=== PATIENT | male | born 1965 | race Caucasian/White ===

== ENCOUNTER 2025-05-30 14:55 | Outpatient (AMB) | payer OTHER, SELFPAY ==
--- NOTE | 2025-05-30 15:08 | A.PHYSOV_ITS ---
Vital Signs 05/30/25 15:14 Height 5 ft 9 in Weight 200 lb BMI 29.5 Intake Visit Reasons: MRI FUV-SCANNED Intake Note: Patient is a 60yr old male coming in today for MRI review. Supervisor Ditching Required: No Allergies bee venom protein (honey bee) Allergy (Unknown, Verified 05/30/25 15:10) Unknown celecoxib Allergy (Unknown, Verified 05/30/25 15:10) Unknown HPI Comments Details: Mr. Amin is a 60-year-old male seen in evaluation today for chronic pain. Today we are reviewing MRI of his lumbar spine. He reports pain level today a 5/10 into the lower lumbar area without radiculitis. Patient did complete physician directed home exercise plan. MRI of his lumbar spine does confirm degenerative changes throughout the lumbar spine without high-grade spinal canal stenosis. Foraminal stenosis most pronounced at L2-3 and L5-S1 bilaterally as well as the right at L3-4. Patient is also experiencing 6/10 neck and shoulder pain. He did undergo bilateral subacromial injection for both shoulders on 04/26/2005. Patient reports moderate relief of his symptoms. He is still experiencing neck pain with popping. I ordered x-rays of his cervical spine which does confirm degenerative changes particularly at C5-6. X-ray of both shoulders does confirm mild calcific tendinitis on the left. X-ray of the thoracic spine does confirm spurring more prominent on the right. [facility] Surgical History H/O vasectomy [place] teeth extracted (Unknown) History of hip surgery (Unknown) History of ankle surgery (Unknown) Social History Alcohol intake: current Alcohol intake frequency: 0-2 drinks per day Patient Tobacco Use Status: Never used Tobacco Review of Systems Narrative Review of systems consistent with low back pain, neck pain and bilateral shoulder pain. No incontinence, saddle anesthesia or urinary retention. Physical Exam Exam Exam: Cervical Spine: Examination of his cervical spine, there is no visible swelling or deformity. He is tender to bilateral upper trapezius. Full range of motion of the cervical spine in all planes. Special Tests: Axial Compression test: Negative Spurlings test: Negative Lhermitte's sign is Negative Upper Extremities: Full range of motion bilateral upper extremities. Positive Neer testing bilaterally. Neuro: Sensation: Intact to upper extremities bilateral to light touch Strength C5 (Elbow Flexion): 5/5 on the left and 5/5 on the right. C6 (Elbow Ext): 5/5 on the left and 5/5 on the right. C7 (Elbow Ext): 5/5 on the left and 5/5 on the right. C8 (Finger Flex): 5/5 on the left and 5/5 on the right. T1 (Finger Abd/Add): 5/5 on the left and 5/5 on the right. DTR: C5 (Biceps): Left 2 Right 2 C6 (Brachioradialis): Left 2 Right 2 C7 (Triceps): Left 1 Right 1 Infante sign: Negative No pathologic clonus. No involuntary movement. Lumbar Spine: Examination of his lumbar spine, he is tender to lower lumbar facets as well as midthoracic paraspinal musculature. He has full range motion of his thoracic spine. Chest rises and falls symmetrically. No scapular winging. He is tender to lower lumbar facets. Full range of motion of his lumbar spine. He denies any pain with facet loading. Special Tests: Lhermittes sign was negative Heel Toe walk is normal Left straight leg raise: Negative Right straight leg raise: Negative Special tests Isa test is negative Ganslen's test is negative SI Joint compression test negative Dez test negative Piriformis stretch is negative Lower Extremities: Full range of motion bilateral lower extremities. No calf pain or edema. Neuro: Sensation: Intact to lower extremities bilaterally Strength L2 (Psoas): 5/5 on the left and 5/5 on the right. L3 (Quads): 5/5 on the left and 5/5 on the right. L4 (Ant tibialis): 5/5 on the left and 5/5 on the right. L5 (EHL) 5/5 on the left and 5/5 on the right. S1 (Gastroc): 5/5 on the left and 5/5 on the right. DTR L4: (Patellar) Left 2 Right 2 S1: (Achilles) Left 2 Right 2 Babinski Downgoing No pathologic clonus. No involuntary movement. Vital Signs: BMI result Body Mass Index 29.5 Assessment & Plan Assessment & Plan (1) Cervical radiculopathy: Code(s): M54.12 - Radiculopathy, cervical region Category: Medical (2) Impingement syndrome of right shoulder: Code(s): M75.41 - Impingement syndrome of right shoulder Category: Medical (3) Lumbar radiculopathy: Code(s): M54.16 - Radiculopathy, lumbar region Category: Medical (4) Impingement of right shoulder: Code(s): M25.811 - Other specified joint disorders, right shoulder Category: Medical (5) Thoracic radiculopathy: Code(s): M54.14 - Radiculopathy, thoracic region Category: Medical Plan Mr. Amin is a 60-year-old male seen in evaluation today for complaints including neck and low back pain as well as bilateral shoulder pain. He did receive mild relief from bilateral subacromial injection. I recommend a course of physical therapy focusing on his neck, shoulders and thoracic spine. Recommend follow-up post physical therapy. He will continue his medications as prescribed. MRI of his lumbar spine does confirm mild to moderate degenerative disc disease. Patient will monitor his symptoms. He may benefit from facet injection. We may also consider MRI on return from physical therapy. We discussed the benefits of proper nutrition and exercise to maintain a healthy body weight to improve longevity and function. We also discussed the benefits of proper lifting techniques, core strengthening and proper posture. Thank you for allowing me to participate in the care of your patient. Orders: Orders PT Evaluation and Treatment Today M54.12 - Radiculopathy, cervical region, M75.41 - Impingement syndrome of right shoulder Coding Level of Care Code Tele Est Pt Level 3 (42062) Diagnoses Cervical radiculopathy M54.12 Impingement syndrome of right shoulder M75.41 Lumbar radiculopathy M54.16 Impingement of right shoulder M25.811 Thoracic radiculopathy M54.14
[2025-05-30 15:14] VITALS: BMI 29.5
--- OUTSIDE RECORDS SUMMARY | 2025-05-30 18:16 | XMS_ITS | Data Portability ---
Author Organization [place] [facility] Chrissy David [facility] [place] Address [address] [place] [address] Care Team Providers Care Chair Inspector Name Role Phone AGUSTIN MAGDALENO Referring Provider AGUSTIN MAGDALENO Primary Care Provider [phone] Assessment Encounter Date Assessment Date Assessment LastModified by Organization Details LastModified Time 09/01/2023 09/01/2023 Pleasant 58-year-old male status post right total hip arthroplasty 09/07/2019 Dr. Wilson. Patient is doing well clinically. He no longer has to take antibiotic prophylaxis per Dr. Mai protocol. Will do a 5-year recall. I did review his x-rays with him at today's visit. Will give him a letter for his dentist stating he no longer needs antibiotics however if they wish to continue this they can take over management. Patient agrees with the above-noted plan. Patient was seen and evaluated by Rudi Child PA-C in indirect conjuction with Documenting Provider: Dale Mai MD . He/She agrees with history, physical examination, tests/diagnostic imaging, and treatment plan. Additional treatment plan discussed with the patient (only initiated if in boldface font) otherwise not applicable. Treatment may include the following; - Provider focused nonsteroidal anti-inflammator y regimen (discussed were the pros, cons, benefits and risks as well as any black box warnings) in patients over 60 years old they should be very cautious in taking these medications due to potential decreased kidney function and or elevated blood pressure. - Analgesic pain medication for pain suppression (discussed were the pros, cons, benefits and risks as well as any black box warnings) - The use of topical pain relieving medication were discussed - The use of ice to decrease inflammation and pain - The use of assistive ambulatory devices for ambulation and fall prevention - Formal specific guided physical therapy program I reviewed my findings at length with the patient today. We discussed the nature and etiology of this problem along with current treatment options. We discussed the expected course and outcomes and what to expect. We also discussed risks and benefits. All of their questions were answered today, and there was exhibited understanding and comprehension of all that was discussed. Time Spent: 10 minutes were spent reviewing previous imaging and charting. 10 minutes were spent obtaining patient history. 5 minutes were spent on physical exam. 5minutes were spent explaining diagnosis and assessment. Today's documentation was made using voice recognition software. This note may contain grammatical errors secondary to the software. Not available 09/01/2023 09:08:53 Plan of Treatment Reminders Order Date Submit Date Provider Last Modified By Organization Details Last Modified Time Details Appointments None record ed. Lab None record ed. Referral None record ed. Procedures None record ed. Surgeries None record ed. Imaging XR, hip, unilat eral, 2 or 3 view 024 09/01/19 24 [email or web address] [facility], [address], [address], [place], [address], 4 09:10:47 Medication Orders None record ed. Patient TargetsNo targets recorded. Patient Instructions Encounter Date Encounter Id Patient Instructions Last Modified By Organization Details Last Modified Time 09/01/2023 [id number] X-rays performed at today's visit reveal well-seated well-positioned right total hip arthroplasty without sign of loosening. No acute bony abnormality. Not available 09/01/2023 09:08:19 Reason for Referral None Reported. Problems Name Problem SNOMED Code Status Onset Date Resolution Date Notes Provider Name and Address Organization Details Recorded Time Osteoarth ritis of right hip joint 39068960406 9107 Active 2018 Osteoarth ritis of right hip Not Available [facility] 5 00:12:12 Problem Notes None recorded. Procedures Surgical History Date Name Laterality Status Provider Name and Address Organization Details Recorded Time Ankle/Foot Surgery completed [facility], 09/01/2023 08:56:15 total replacement of hip completed [facility] 09/01/2023 08:56:31 Imaging Results None recorded. Procedure Notes None recorded. Medical Equipment None Reported. Allergies Allergen ID Allergen Name Allergen Category Reaction Reaction Severity Criticality Documentation Date Start Date Code Code System Note Provider Name and Address Organization Details Recorded Time 967409 celecoxib medicatio n Not available Not available Not available 04/10/20252021 12648 7 RxNorm [facility] 5 01:33:44 77362 Celebrex medicatio n Not available Not available Not available 09/01/2023 65472 7 RxNorm Sharita Zee [facility], [place] [facility], 4 08:54:43 Medications Name Sig Start Date Stop Date Status Note LastModified by Organization Details LastModified Time amoxicillin 500 mg capsule TAKE 4 CAPSULES BY MOUTH 1 HOUR PRIOR TO DENTAL APPOINTME NT 2021 active Not Available Not Available Not Avai lable atorvastati n 40 mg tablet Take 1 tablet by mouth daily. active Not Available Not Available No t Available metformin 500 mg tablet 09/01 completed Not Available Not Available Not Available tizanidine 2 mg tablet 09/01 completed Not Available Not Available Not Available tizanidine 4 mg tablet 09/01 completed Not Available Not Available Not Available dextroamphe tamine-amph etamine 10 mg tablet Take 1 tablet by mouth. active Not Available Not Available No t Available metformin 850 mg tablet active Not Available Not Available Not Available chlorthalid one 25 mg tablet Take 1 tablet by mouth daily. active Not Available Not Available No t Available acetaminoph en 500 mg tablet 2019 active Not Available Not Available Not Avai lable amoxicillin 500 mg tablet Take 4 tabs 1 hour prior to dental appointme nt 12/03 completed Not Available Not Available Not Available alprazolam 0.5 mg tablet active Not Available Not Available Not Available hydromorpho ne 2 mg tablet Take 1 to 2 tabs every 3 hours as needed for pain. May fill for lesser quantity 2019 active Not Available Not Available Not Avai lable alprazolam 0.25 mg tablet Take 0.25 mg by mouth. active Not Available Not Available No t Available pravastatin 80 mg tablet TAKE ONE TABLET BY MOUTH ONCE DAILY 2018 active Not Available Not Available Not Avai lable methocarbam ol 750 mg tablet Take 1 tab every 8 hours as needed for spasms 2019 active Not Available Not Available Not Avai lable OneTouch Ultra Test strips active Not Available Not Available Not Available buspirone 30 mg tablet Take 1 tablet by mouth. active Not Available Not Available No t Available naproxen sodium 220 mg tablet Take 440 mg by mouth. 05/19 completed Not Available Not Available Not Available gabapentin 300 mg capsule 2019 active Not Available Not Available Not Avai lable celecoxib 100 mg capsule Take 1 tab twice daily for pain. Do NOT take any other nonsteroi evangelist anti-infl ammatory such as ibuprofen , Motrin, naproxen, Aleve. 2018 active Not Available Not Available Not Avai lable lisinopril 40 mg tablet Take 40 mg by mouth. active Not Available Not Available No t Available metformin ER 500 mg tablet,exte nded release 24 hr TAKE ONE TABLET BY MOUTH ONCE DAILY WITH BREAKFAST 2018 active Not Available Not Available Not Avai lable lamotrigine 100 mg tablet Take 1 tablet by mouth. active Not Available Not Available No t Available oxycodone 5 mg tablet Take 1 tab prior to bedtime. May fill for lesser quantity. 09/25 completed Not Available Not Available Not Available bupropion HCl SR 200 mg tablet,12 hr sustained-r elease active Not Available Not Available Not Available escitalopra m 10 mg tablet 09/01 completed Not Available Not Available Not Available bupropion HCl XL 150 mg 24 hr tablet, extended release 09/01 completed Not Available Not Available Not Available Jantoven 1 mg tablet 2019 active Not Available Not Available Not Avai lable escitalopra m 5 mg tablet 2021 active Not Available Not Available Not Avai lable duloxetine 60 mg capsule,del ayed release Take 60 mg by mouth. active Not Available Not Available No t Available OneTouch Delica Plus Lancet 30 gauge active Not Available Not Available Not Available Vitals Date Recorded Body height Body mass index (BMI) Body weight Provider Name and Address Organization Details Last Updated DateTime 09/01/2023 175.26 cm 34.7 kg/m2 935449.[address] [place] [facility] 09/01/2023 08:54:53 Social History None recorded. Functional Status Question Answer Note LastModified by Organizat ion Details LastModified Time How many times per week do you consume alcohol? 5-7 times per week 15-25 drinks a week [facility] Information not available 09/01/2023 Do you use any illicit or recreational drugs? No [facility] Information not available 09/01/2023 Do you or have you ever used any other forms of tobacco or nicotine? No [email or web address] Information not available 09/01/2023 What is your level of alcohol consumption? Heavy [email or web address] Information not available 09/01/2023 Mental Status None recorded. Family History Relationship Description Onset Age of this Age Resolved Age Notes LastModified by Organization Details LastModified Time Father Family history of malignant neoplasm [facility] Not available 2023 08:56:04 Sister Family history of malignant neoplasm [email or web address] Not available 2023 08:56:04 Medical History Condition Response Diabetes Y Osteopenia Y Hypertension Y Past Encounters Encounter ID Performer Location Encounter Start Date Encounter Closed Date Diagnosis/Indication Diagnosis SNOMED-CT Code Diagnosis ICD10 Code Diagnosis IMO Codes Diagnosis Note [id number] [address]WIN [address] [address] 09/01/2023 08:30:59 09/01/2023 09:10:06 History of total replacement of right hip joint [id number] 87175 Z96.641 Health Concerns Section Related Observation LastModified by Organization Detai ls LastModified Time None Recorded Concern Status LastModified by Organization Details LastModified Time None Recorded Advance Directives Directive None Recorded Payers Insurance Date Sequence Insurance Name Policy Number Policy Baker Covered Member ID Baker Member ID Guarantor Name 09/01/2023 1 [facility] [id number] Jean Amin [id number] Jean Amin Notes Date Note Type Note Provider Name and Address Organization Details Recorded Time 09/01/2023 text/html Pleasant 58-year-old male status post right total hip arthroplasty Dr. Zambrano on 09/07/2019. Patient is doing well no complaints at this time. Here for follow-up X-rays performed at today's visit reveal well-seated well-positioned right total hip arthroplasty without sign of loosening. No acute bony abnormality. RUDI CHILD PA-C [address] [place] [address],[place] [address], [place], [address], [place] [facility] 09/01/2023 09:09:13
--- OUTSIDE RECORDS SUMMARY | 2025-05-30 18:16 | XMS_ITS | Clinical Summary ---
Author Organization [facility] Address [address] [place] [address] Care Team Providers Care Body Service Team Member Name Role Phone Christiano Colvin MD Primary Care Provider Allergies Active Allergy Reactions Criticality Noted Date Comments Celecoxib 05/20/2022 Medications Medication Sig Dispensed Refills Start Date End Date Status ALPRAZolam (XANAX) 0.25 MG tablet Take 0.25 mg by mouth. 0 Active amphetamine-dextro amphetamine (ADDERALL) 10 MG tablet Take 1 tablet by mouth. 0 Active busPIRone (BUSPAR) 30 MG tablet Take 1 tablet by mouth. 0 Active chlorthalidone (HYGROTON) 25 MG tablet Take 25 mg by mouth. 0 01/10/2019 Active DULoxetine (CYMBALTA) DR capsule 60 mg Take 60 mg by mouth. 0 Active lamoTRIgine (LaMICtal) 100 MG tablet Take 1 tablet by mouth. 0 Active lisinopril (PRINIVIL,ZESTRIL) tablet 40 mg Take 40 mg by mouth. 0 01/10/2019 Active metFORMIN (GLUCOPHAGE-XR) ER 24 hr tablet 500 mg TAKE ONE TABLET BY MOUTH ONCE DAILY WITH BREAKFAST 0 04/11/2019 Active Multiple Vitamins-Minerals (MULTIVITAMIN ADULT) TABS Take by mouth. 0 Active pravastatin (PRAVACHOL) tablet 80 mg TAKE ONE TABLET BY MOUTH ONCE DAILY 0 12/13/2018 Active celecoxib (CELEBREX) 100 MG capsule Take 1 tab twice daily for pain. Do NOT take any other nonsteroidal anti-inflammatory such as ibuprofen, Motrin, naproxen, Aleve. 30 capsule 2 05/19/2019 Active methocarbamol (ROBAXIN-750) 750 MG tablet Take 1 tab every 8 hours as needed for spasms 30 tablet 2 09/17/2019 Active ACETAMINOPHEN EXTRA STRENGTH 500 MG tablet 0 09/15/2019 Active gabapentin (NEURONTIN) 300 MG capsule 0 09/15/2019 Active JANTOVEN 1 MG tablet 0 09/15/2019 Active HYDROmorphone (DILAUDID) 2 MG tablet Take 1 to 2 tabs every 3 hours as needed for pain. May fill for lesser quantity 40 tablet 0 09/26/2019 Active Additional Information Patient not taking.Reason: Other, Reported on 08/26/2021 atorvastatin (LIPITOR) tablet 40 mg TAKE 1 TABLET BY MOUTH EVERY DAY 0 04/11/2020 Active buPROPion (WELLBUTRIN XL) 150 MG 24 hr tablet 0 08/03/2021 Active escitalopram (LEXAPRO) 5 MG tablet 0 08/03/2021 Active amphetamine-dextro amphetamine (ADDERALL) 10 MG tablet Take 1 tablet by mouth. 0 Active atorvastatin (LIPITOR) tablet 40 mg Take 1 tablet by mouth daily. 0 04/07/2021 Active chlorthalidone (HYGROTON) 25 MG tablet Take 1 tablet by mouth daily. 0 02/17/2021 Active amoxicillin (AMOXIL) 500 MG capsule TAKE 4 CAPSULES BY MOUTH 1 HOUR PRIOR TO DENTAL APPOINTMENT 20 capsule 3 12/03/2021 Active Active Problems Problem Noted Date Diagnosed Date Osteoarthritis of right hip 05/19/2019 Family History Medical History Relation Name Comments Cancer Father Relation Name Status Comments Father Social History Tobacco Use Types Packs/Day Years Used Date Smoking Tobacco: Never Assessed Sex and Gender Information Value Date Recorded Sex Assigned at Not on file Gender Identity Not on file Sexual Orientation Not on file Job Start Date Occupation Industry Not on file Not on file Not on file Last Filed Vital Signs Vital Sign Reading Time Taken Comments Blood Pressure - - Pulse - - Temperature - - Respiratory Rate - - Oxygen Saturation - - Inhaled Oxygen Concentration - - Weight 102.1 kg (225 lb) 05/19/2019 8:43 AM EDT Height 175.3 cm (5' 9 ) 05/19/2019 8:43 AM EDT Body Mass Index 33.23 05/19/2019 8:43 AM EDT Plan of Treatment Health Maintenance Due Date Last Done Comments Hepatitis C Screening 1963 Depression Screening 1975 BMI Counseling 1981 Preventative Health Evaluation 1981 Colon Cancer Screening (Colonoscopy) 02/24/2008 Shingrix-Zoster Vaccine (1 of 2) 2013 COVID-19 Vaccine (3 - season) 2025 10/06/2020, 09/14/2020 Influenza Vaccine (#1) 2025 0, 06/27/2019, 04/19/2018, Additional history exists Pneumococcal Vaccine (3 of 3 - PPSV23 or PCV20) 02/24/2028 06/27/2019, 12/10/2017 DTap / Tdap / Td (3 - Td or Tdap) 04/19/2028 04/19/2018, 01/25/2008 RSV Adult > 60+ Yrs or (1 - 1-dose 75+ series) 2038 Hepatitis B Vaccines Aged Out No long er eligible based on patient's age to complete this topic RSV Ped < 20 months Aged Out No longe r eligible based on patient's age to complete this topic Care Teams Body Service Team Member Relationship Specialty Start Date End Date Christiano Colvin MD PCP - General Internal Medicine 05/05/19
== END 2025-05-30 15:40 | disposition home or self-care (01) ==
LOC: HO.HPHYS 14:55
PROVIDERS: PCP Internal Medicine; Visit Provider Physician Assistant
DX: M54.12 Radiculopathy, cervical region (principal); M75.41 Impingement syndrome of right shoulder; M54.16 Radiculopathy, lumbar region; M25.811 Other specified joint disorders, right shoulder; M54.14 Radiculopathy, thoracic region
CPT/HCPCS: 99213